=== PATIENT | female | born 1950 | race Caucasian/White ===

== ENCOUNTER 2017-02-03 16:30 | Emergency (ER) | payer MEDICARE ==
[2017-02-03 21:48] LABS: ALBUMIN 2.9 g/dL (3.4-5.0); ALKALINE PHOSPHATASE 58 U/L (46-116); ALT (SGPT) 20 U/L (10-68); BILIRUBIN - TOTAL 0.38 mg/dL (0.2-1.3); CALC OSMOLALITY 266 mosm/kg (275-300); CALCIUM 8.6 mg/dL (8.5-10.1); CARBON DIOXIDE 30.4 mmol/L (21.0-32.0); CHLORIDE - SERUM 98 mmol/L (98-107); CREATININE - SERUM 0.7 mg/dL (0.6-1.3); GLUCOSE 95 mg/dL (74-106); POTASSIUM - SERUM 3.5 mmol/L (3.5-5.1); PROTEIN - SERUM 7.4 g/dL (6.4-8.2); SODIUM 135 mmol/L (136-145); UREA NITROGEN 5 mg/dL (7-18); eGFR NON AFRICAN AMERICAN 88 mL/min (90-120)
[2017-02-03 22:30] LABS: BASOPHILS 0.2 % (0.0-2.0); HEMATOCRIT 34.7 % (36.0-48.0); HEMOGLOBIN 11.6 g/dL (12-16); IMMATURE GRANULOCYTES 0.5 % (0-5); LYMPHOCYTES 20.8 % (15-50); MCH 30.2 pg (26.0-34.0); MCHC 33.4 g/dL (31.0-37.0); MCV 90.4 fL (80.0-100.0); MEAN PLATELET VOLUME 10.2 fL (7.4-10.4); MONOCYTES 8.4 % (2-11); NEUTROPHILS 69.1 % (40-80); PLATELET COUNT 288 10x3/uL (130-400); RBC 3.84 10x6/uL (4.00-5.40); RDW 13.2 % (11.5-14.5); WBC 9.7 10x3/uL (4.8-10.8)
== END 2017-02-03 23:02 | disposition home or self-care (01) ==
LOC: D.ER 16:30
PROVIDERS: Emergency Medicine; Nurse Practitioner Family
DX: J06.9 Acute upper respiratory infection, unspecified (principal); J20.9 Acute bronchitis, unspecified; F32.9 Major depressive disorder, single episode, unspecified; J45.909 Unspecified asthma, uncomplicated

== ENCOUNTER → 2018-02-01 17:55 | Outpatient (CLI) | payer MEDICARE ==
[~2018-02-01 17:55] MED LIST: PROZAC10 MG PO; SINGULAIR10 MG PO
[2018-02-17 06:21] VITALS: BMI 24.6
== END | disposition home or self-care (01) ==
LOC: D.LABREF 17:55
DX: R31.9 Hematuria, unspecified (principal)

== ENCOUNTER → 2018-02-09 15:23 | Outpatient (CLI) | payer MEDICARE ==
[2018-02-17 06:21] VITALS: BMI 24.6
== END | disposition home or self-care (01) ==
LOC: D.US 02-07 13:30
DX: R31.21 Asymptomatic microscopic hematuria (principal)

== ENCOUNTER 2018-02-17 05:15 | Day surgery (SDC) | payer MEDICARE ==
[~2018-02-17] VITALS: Ht 165.1 cm; Wt 67.1 kg
--- NOTE | ~2018-02-17 | OP ---
PATIENT NAME: MARLINE MILLER MEDICAL RECORD: [id number] :46 LOCATION:D.OPS ADMISSION DATE: SURGEON: ISRAEL MORGAN MD DATE OF OPERATION: 02/17/2018 SURGEON: Israel Morgan MD ANESTHESIA: MAC by Israel Shields MD PREOPERATIVE DIAGNOSES: Microhematuria, interstitial cystitis. PROCEDURES: Cystoscopy and intravesical Rimso instillation. FINDINGS: Single ureteral orifices bilaterally. Inflammation of the bladder on the dome and anterior yeh. No bladder tumor is seen. BLOOD LOSS: None. CLINICAL HISTORY: This is a 68-year-old female, who has bladder symptoms of frequency, urgency, and bladder pain. She go so frequently that she was wondering if she has actually even emptying her bladder. On urinalysis, she was found to have microscopic hematuria. We obtained an ultrasound of her kidneys and it is normal, although there is questionable left-sided hydronephrosis. She does not have any left flank pain. Urine cytology showed no tumor cells. She comes today to have cystoscopy performed. If we see bladder inflammation then she will be treated with intravesical Rimso, which is an anti-inflammatory. SHE IS ALLERGIC TO BEE STINGS. She was given ampicillin and sulbactam 3 grams IV powder monkey to the OR. DESCRIPTION OF PROCEDURE: The patient was given IV sedation. She was placed in the dorsal lithotomy position, and prepped and draped. The cystoscope was introduced and cystoscopy was performed with the findings are as outlined above. The bladder was then emptied through the scope and the scope was removed. We inserted a 16-Korean red rubber catheter and through the catheter, we injected the 50 mL of Rimso-50 solution. The catheter was then removed, leaving the solution in the bladder. She will hold the solution in for about 15 minutes and then void it out. TRANSINT:[id number] Voice Confirmation ID: [id number] DOCUMENT ID: [id number] ISRAEL MORGAN MD at 1012 CC: [id number] DICTATION DATE: 02/17/18809 BABY COUNSELOR: 02/17/18 0829 [facility] 02/17/18 [place] [address]
[2018-02-17] MEDS ORDERED: SINGULAIR10 MG PO (06:19)
[2018-02-17 06:21] VITALS: BP 129/71; Ht 165.1 cm; Wt 67.1 kg
[2018-02-17 06:51] LABS: HEMOGLOBIN 13.2 g/dL (12-16); MCHC 33.8 g/dL (31.0-37.0); MCV 88.6 fL (80.0-100.0); MEAN PLATELET VOLUME 9.9 fL (7.4-10.4); RBC 4.4 10x6/uL (4.00-5.40); RDW 13.2 % (11.5-14.5); WBC 5.2 10x3/uL (4.8-10.8)
== END 2018-02-17 09:31 | disposition home or self-care (01) ==
LOC: D.OPS 05:15
PROVIDERS: Anesthesiology
DX: R31.29 Other microscopic hematuria (principal); N30.11 Interstitial cystitis (chronic) with hematuria; J44.9 Chronic obstructive pulmonary disease, unspecified; J45.909 Unspecified asthma, uncomplicated; K21.9 Gastro-esophageal reflux disease without esophagitis; Z01.812 Encounter for preprocedural laboratory examination

== ENCOUNTER → 2018-09-19 12:25 | Outpatient (CLI) | payer MEDICARE ==
[2018-02-17 06:21] VITALS: BMI 24.6
== END | disposition home or self-care (01) ==
LOC: D.RAD 12:25
DX: M25.551 Pain in right hip (principal)

== ENCOUNTER → 2018-12-15 12:42 | Outpatient (CLI) | payer MEDICARE ==
[2018-02-17 06:21] VITALS: BMI 24.6
--- NOTE | ~2018-12-15 | HEMODYNAMI ---
PATIENT:MARLINE MILLER MEDICAL RECORD: [id number] : 46 LOCATION:BROCK ADMISSION DATE: 12/15/18 Generatedon:12/15/201813:23 Patient name: MARLINE MILLER Patient #: [id number] SSN: D OB: 1950 Date of study: 12/15/2018 Page: Of Hemodynamic Procedure Report Patient Data Patient Demographics Procedure consent was obtained First Name: MARLINE Gender: Female Last Name: ANGELA : 1950 Patient #: [id number] Age: 68 year(s) Race: Unknown Additional ID: [id number] Contact details Address: [address] [place] [address] State: [place] City: [place] Zip code: [address] Past Medical History Allergies: No known allergies Admission Admission Data Admission Date: 12/15/2018 Admission Time: 12:42 Procedure Procedure Types Cath Procedure Peripheral Cath Diagnostic Procedure Miscellaneous Procedure Description Procedure Date Procedure Date: 12/15/2018 Procedure Start Time: 13:06 Procedure Staff Name Function Kael Bowling MD Performing Physician Earl Gilbert RT Monitor Ally Verdugo RN Nurse Procedure Data Cath Procedure Fluoroscopy Diagnostic fluoroscopy Total fluoroscopy Time: 0.9 time: 0.9 min min Diagnostic fluoroscopy Total fluoroscopy dose: 5 dose: 5 mGy mGy Hemodynamics Rest Pre Cath Intra NCS Post Cath Procedure Log Time Note 12:57:43 Earl Gilbert RT (R) (CV) sent for patient. Start room use. 12:57:55 Patient received from Other to IR Alert and oriented. Tansferred to table in Supine position. 12:57:56 Correct patient and procedure confirmed by team. 12:57:58 Signed procedure consent form obtained from patient. 12:58:00 Full Disclosure recording started 12:58:00 - 12:58:01 Pre-procedure instructions explained to patient. 12:58:01 Pre-op teaching completed and patient verbalized understanding. 13:04:29 Patient allergic to No known allergies 13:04:43 Is patient on blood thinner?Yes 13:04:51 Right groin area was prepped with chlora-prep and draped in sterile fashion 13:04:59 Physician arrived 13:04:59 --------ALL STOP TIME OUT------ 13:05:00 Final Timeout: patient, procedure, and site verified with staff and physician. All members of the team are in agreement. 13:05:03 Right groin site verified by team. 13:05:09 Sedation plan: Local Anesthetic Medication:Lidocaine 13:06:19 Procedure started. 13:06:27 Local anesthetic to right groin with Lidocaine 1% by Kael Bowling MD.INITIAL ACCESS ONLY 13:06:55 SAFE-T PLUS MYELOGRAM TRAY opened to sterile field. 13:21:49 Procedure ended.(Physican Out) 13:22:21 Fluoroscopy time 00.90 minutes. 13:22:26 Fluoroscopy dose: 5 mGy 13:22:26 Flurop Dose total: 5 13:22:50 bandaide applied to right hip and pt sent home site stable Device Usage Item Name Manufacture Quantity Catalog Hospital Part Current Minimal Lot# / Number Charge Number Stock Stock Serial# Code SAFE-T CareFusion 1 [id number] PLUS MYELOGRAM TRAY Signature Audit [place] Stage Time Signature Unsigned Intra-Procedure 12/15/2018 Earl 1:23:13 PM Ofelia RT (R) (CV) Signatures Monitor : Earl Signature : Ofelia RT Date : Time : [facility] [address] [place] [address]
== END | disposition home or self-care (01) ==
LOC: D.RAD 12:42
DX: M16.11 Unilateral primary osteoarthritis, right hip (principal)

== ENCOUNTER 2019-04-27 05:45 | Day surgery (SDC) | payer MEDICARE ==
[~2019-04-27] VITALS: Ht 167.6 cm; Wt 68.0 kg
[~2019-04-27 05:45] MED LIST changes: +ALEVE220 MG PO; +CLARITIN 10 MG10 MG PO; +CRESTOR5 MG PO; +EFFEXOR XR37.5 MG PO
[2019-04-27 06:07] LABS: HEMATOCRIT 40.8 % (36.0-48.0); MCH 30.3 pg (26.0-34.0); MCHC 34.3 g/dL (31.0-37.0); MCV 88.3 fL (80.0-100.0); MEAN PLATELET VOLUME 9.4 fL (7.4-10.4); RBC 4.62 10x6/uL (4.00-5.40); RDW 14.2 % (11.5-14.5); WBC 6.3 10x3/uL (4.8-10.8)
[2019-04-27 07:24] VITALS: BP 138/63; Ht 167.6 cm; Wt 68.0 kg
--- NOTE | 2019-04-27 08:26 | NUR ---
REC'D FROM SURGERY. ENCOURAGED PATIENT TO TURN FROM SIDE TO SIDE TO DISTRIBUTE MEDICATION TO THE BLADDER, VERBALIZED UNDERSTANDING. ICE WATER BROUGHT TO PATIENT.
--- NOTE | 2019-04-27 08:52 | NUR ---
UP TO BATHROOM. VOIDED WITHOUT DIFFICULTY. WAITING ON BREAKFAST TRAYS.
--- NOTE | 2019-04-27 08:54 | NUR ---
UP TO BATHROOM. VOIDED WITHOUT DFFICULTY. WAITING ON BREAKFAST TRAYS. NO C/O VOICED.
--- NOTE | 2019-04-27 08:59 | NUR ---
CALLED PATIENT'S TRANSPORTATION. INFORMED PATIENT WOULD BE READY BETWEEN 20-30 MINUTES. VERBALIZED UNDERSTANDING.
--- NOTE | 2019-04-27 09:15 | NUR ---
FL TRAY BROUGHT TO PATIENT.
--- NOTE | 2019-04-27 09:30 | NUR ---
TOLERATED FL TRAY. NO CHANGES NOTED.
--- NOTE | 2019-04-27 09:35 | NUR ---
TOLERATED FL TRAY. IV DC'D WITH CATHETER INTACT. WRITTEN AND VERBAL DC INST. GIVEN TO PT. VERBALIZED UNDERSTANDING. WAITING ON TRANSPORTATION.
--- NOTE | 2019-04-27 10:15 | NUR ---
DC'D HOME WITH A FRIEND VIA PRIVATE VEHICLE. TAKEN TO VEHICLE VIA WC. STABLE AT TIME OF DC.
--- NOTE | 2019-04-28 09:07 | OP ---
PATIENT NAME: MARLINE MILLER MEDICAL RECORD: [id number] :46 LOCATION:D.OPS ADMISSION DATE: SURGEON: ISRAEL MORGAN MD DATE OF OPERATION: 04/27/2019 SURGEON: Israel Morgan MD ANESTHESIA: TIVA by Torres Figueroa MD. DIAGNOSES: Urethral stricture, interstitial cystitis. PROCEDURES: Urethral dilation, cystoscopy, hydrodistention, and intravesical Rimso instillation. FINDINGS: Single ureteral orifices bilaterally, diffuse bladder inflammation with glomerulations, cystitis cystica. No bladder tumors were seen. BLOOD LOSS: None. CLINICAL HISTORY: This is a 69-year-old female with a previous history of interstitial cystitis, which responded to intravesical Rimso. Her symptoms have flared up again and now she has suprapubic pain with urinary urgency and nocturia every 2 hours and daytime frequency every 1 hour. There is also vaginal pain. She also complains of a slow urinary flow. Urine cultures have shown no growth. She comes for cystoscopy, hydrodistention and intravesical Rimso installation. If she has a urethral stricture, we will dilate the urethra. She is not allergic to any medications. She was given Ancef quality assurance monitor body to the OR. PROCEDURE: The patient was given IV sedation. She was placed into lithotomy position and prepped and draped. A 21-[place]orese cystoscope could not enter due to urethral stricture. We used sounds to dilate the urethra to 24 [place]orese. The scope could then be placed in. Findings are as outlined above. The bladder was filled with normal saline to a volume of at least 600 mL. This was held for about 1 minute and then the bladder was deflated. The scope was then removed. A red rubber catheter was inserted into the bladder and through the lumen of the catheter, 50 mL of Rimso solution was instilled into the bladder. The catheter was then removed, leaving the solution in the bladder. The patient will hold the solution in for 15 minutes or longer and then void it out. I will see the patient in followup in 2 weeks' time. TRANSINT:[id number] Voice Confirmation ID: [id number] DOCUMENT ID: [id number] ISRAEL MORGAN MD at 0907 CC: [id number] DICTATION DATE: 04/27/19826 FORENSIC EXAMINER: 04/27/192118 [facility] 04/27/19 [facility] [address] [place] [id number]
== END 2019-04-27 10:15 | disposition home or self-care (01) ==
LOC: D.OPS 05:45 → D.PAN 08:15 → D.OPS 09:45 → D.PAN 10:15 → D.OPS 10:15
PROVIDERS: Anesthesiology; ATTEND Urology
DX: N35.92 Unspecified urethral stricture, female (principal); N30.10 Interstitial cystitis (chronic) without hematuria; N30.80 Other cystitis without hematuria; Z01.812 Encounter for preprocedural laboratory examination

== ENCOUNTER → 2019-05-11 09:21 | Outpatient (CLI) | payer MEDICARE ==
[2019-04-27 07:24] VITALS: BMI 24.2
--- NOTE | ~2019-05-11 | HEMODYNAMI ---
PATIENT:MARLINE MILLER MEDICAL RECORD: [id number] : 46 LOCATION:BROCK ADMISSION DATE: 05/11/19 Generatedon:05/11/201910:42 Patient name: MARLINE MILLER Patient #: [id number] SSN: D OB: 1950 Date of study: 05/11/2019 Page: Of Hemodynamic Procedure Report Patient Data Patient Demographics Procedure consent was obtained First Name: MARLINE Gender: Female Last Name: ANGELA : 1950 Patient #: [id number] Age: 69 year(s) Race: Unknown Additional ID: [id number] Contact details Address: [address] [place] [address] State: [place] City: [place] Zip code: [address] Past Medical History Allergies: No known allergies Admission Admission Data Admission Date: 05/11/2019 Admission Time: 9:21 Procedure Procedure Types Cath Procedure Peripheral Cath Diagnostic Procedure Miscellaneous Aspiration/Injection (Joint) Procedure Description Procedure Date Procedure Date: 05/11/2019 Procedure Start Time: 10:29 Procedure End Time: 10:39 Procedure Staff Name Function Prabhjot Jovel MD Performing Physician RAGINI MEREDITH RT Monitor Chrissy Patino RN Nurse Asmita Verdugo RN Nurse Procedure Data Cath Procedure Fluoroscopy Diagnostic fluoroscopy Total fluoroscopy Time: 0.1 time: 0.1 min min Diagnostic fluoroscopy Total fluoroscopy dose: 2 dose: 2 mGy mGy Hemodynamics Rest Pre Cath Intra NCS Post Cath Procedure Log Time Note 10:11:46 RAGINI MEREDITH RT (R) sent for patient. Start room use. 10:11:47 Time tracking: Regular hours (M-F 7:00 - 5:00) 10:11:56 Patient received from Outpatients to IR Alert and oriented. Tansferred to table in Supine position. 10:11:59 Correct patient and procedure confirmed by team. 10:12:03 Signed procedure consent form obtained from patient. 10:12:04 - 10:12:11 Pre-procedure instructions explained to patient. 10:12:15 Pre-op teaching completed and patient verbalized understanding. 10:12:22 Patient allergic to No known allergies 10:12:27 Is patient on blood thinner?No 10:12:57 Right Hip was prepped with betadine and draped in sterile fashion. 10:13:06 - 10:21:09 SAFE-T PLUS MYELOGRAM TRAY opened to sterile field. 10:22:54 Physician arrived 10:22:55 --------ALL STOP TIME OUT------ 10:23:37 Full Disclosure recording started 10:29:43 Local anesthetic to Right Hip with Lidocaine 1% by Prabhjot Jovel MD.INITIA L ACCESS ONLY 10:34:16 Procedure ended.(Physican Out) 10:34:25 Fluoroscopy time 00.10 minutes. 10:34:31 Fluoroscopy dose: 2 mGy 10:34:31 Flurop Dose total: 2 10:39:07 Procedure ended. 10:39:08 Full Disclosure recording stopped 10:39:31 Post Right Hip:stable band aide applied and patient sent home. 10:39:43 End room use (Document Last) 10:41:37 Procedure started. Device Usage Item Name Manufacture Quantity Catalog Hospital Part Current Minimal Lot# / Number Charge Number Stock Stock Serial# Code SAFE-T CareFusion 1 [id number] PLUS MYELOGRAM TRAY Signature Audit [place] Stage Time Signature Unsigned Intra-Procedure 05/11/2019 RAGINI MEREDITH RT 10:42:13 AM (R) Signatures Monitor : RAGINI MEREDITH RT Signature : Date : Time : [place] [address] [place] [address]
== END | disposition home or self-care (01) ==
LOC: D.RAD 08:00
PROVIDERS: ATTEND Orthopaedic Surgery
DX: M16.11 Unilateral primary osteoarthritis, right hip (principal)

== ENCOUNTER → 2019-05-15 20:01 | Outpatient (CLI) | payer MEDICARE ==
[2019-04-27 07:24] VITALS: BMI 24.2
== END | disposition home or self-care (01) ==
LOC: D.LABREF 20:01
PROVIDERS: ATTEND Urology
DX: D72.829 Elevated white blood cell count, unspecified (principal); R31.9 Hematuria, unspecified

== ENCOUNTER 2019-05-22 08:00 | Outpatient (CLI) | payer MEDICARE ==
[2019-04-27 07:24] VITALS: BMI 24.2
== END 2019-05-22 23:59 | disposition home or self-care (01) ==
LOC: D.MAMMO 08:00
PROVIDERS: ATTEND Family Medicine
DX: Z12.31 Encounter for screening mammogram for malignant neoplasm of breast (principal)

== ENCOUNTER → 2020-05-06 20:48 | Outpatient (CLI) | payer MEDICARE ==
[2019-04-27 07:24] VITALS: BMI 24.2
== END | disposition home or self-care (01) ==
LOC: D.LABREF 20:48
PROVIDERS: ATTEND Urology
DX: R82.90 Unspecified abnormal findings in urine (principal)

== ENCOUNTER → 2020-05-21 10:19 | Outpatient (CLI) | payer MEDICARE ==
[2019-04-27 07:24] VITALS: BMI 24.2
--- NOTE | ~2020-05-21 | HEMODYNAMI ---
PATIENT:MARLINE MILLER MEDICAL RECORD: [id number] : 46 LOCATION:[facility] ADMISSION DATE: 05/21/20 Generatedon:05/21/202011:04 Patient name: MARLINE MILLER Patient #: [id number] SSN: D OB: 1950 Date of study: 05/21/2020 Page: Of Hemodynamic Procedure Report Patient Data Patient Demographics Procedure consent was obtained First Name: MARLINE Gender: Female Last Name: ANGELA : 1950 Patient #: [id number] Age: 70 year(s) Race: Unknown Additional ID: [id number] Contact details Address: [address] [place] [address] State: [place] City: [place] Zip code: [address] Past Medical History Allergies: No known allergies Admission Admission Data Admission Date: 05/21/2020 Admission Time: 10:19 Procedure Procedure Types Cath Procedure Peripheral Cath Diagnostic Procedure Miscellaneous Epidural Steroid Injection Procedure Description Procedure Date Procedure Date: 05/21/2020 Procedure Start Time: 10:54 Procedure Staff Name Function Prabhjot Jovel MD Performing Physician Earl Gilbert RT Monitor Fabienne Saeed RT Scrub Procedure Data Cath Procedure Fluoroscopy Diagnostic fluoroscopy Total fluoroscopy Time: 0.3 time: 0.3 min min Diagnostic fluoroscopy Total fluoroscopy dose: 3 dose: 3 mGy mGy Hemodynamics Rest Pre Cath Intra NCS Post Cath Procedure Log Time Note 10:46:13 Earl Gilbert RT (R) (CV) sent for patient. Start room use. 10:46:18 Time tracking: Regular hours (M-F 7:00 - 5:00) 10:46:32 Patient received from Other to IR Alert and oriented. Tansferred to table in Prone position. 10:46:34 Signed procedure consent form obtained from patient. 10:46:35 Warm blankets applied, and tiffany hugger turned on for patient comfort. 10:46:37 Correct patient and procedure confirmed by team. 10:46:39 Full Disclosure recording started 10:46:39 - 10:46:41 Pre-procedure instructions explained to patient. 10:46:42 Pre-op teaching completed and patient verbalized understanding. 10:46:50 Is patient on blood thinner?No 10:47:13 Lumbar area was prepped with betadine and draped in sterile fashion 10:53:31 Physician arrived 10:53:31 --------ALL STOP TIME OUT------ 10:53:32 Final Timeout: patient, procedure, and site verified with staff and physician. All members of the team are in agreement. 10:53:36 Lumbar site verified by team. 10:53:45 Sedation plan: Local Anesthetic Medication:Lidocaine 10:53:59 Procedure started. 10:54:05 Local anesthetic to Lumbar area with Lidocaine 1% by Prabhjot Jovel MD.INITIAL ACCESS ONLY 10:55:30 KIT EPIDURAL CATHETERIZATION opened to sterile field. 11:02:31 Procedure ended.(Physican Out) 11:02:55 Fluoroscopy time 00.30 minutes. 11:02:58 Flurop Dose total: 3 11:02:58 Fluoroscopy dose: 3 mGy 11:03:22 BANDAIDE APPLIED SITE STABALE PT SENT HOME Device Usage Item Name Manufacture Quantity Catalog Hospital Part Current [facility] l Lot# / Number Charge Number Stock Stock Serial# Code KIT EPIDURAL Teleflex 1 [id number] CATHETERIZATION Signature Audit [place] Stage Time Signature Unsigned Intra-Procedure 05/21/2020 Earl 11:04:36 AM Ofelia RT (R) (CV) [facility] [address] [place] [address]
== END | disposition home or self-care (01) ==
LOC: D.RAD 10:00
PROVIDERS: ATTEND Orthopaedic Surgery
DX: M54.16 Radiculopathy, lumbar region (principal)

== ENCOUNTER → 2020-05-23 10:46 | Outpatient (CLI) | payer MEDICARE ==
[2019-04-27 07:24] VITALS: BMI 24.2
--- NOTE | ~2020-05-23 | HEMODYNAMI ---
PATIENT:MARLINE MILLER MEDICAL RECORD: [id number] : 46 LOCATION:BROCK ADMISSION DATE: 05/23/20 Generatedon:05/23/202012:25 Patient name: MARLINE MILLER Patient #: [id number] SSN: D OB: 1950 Date of study: 05/23/2020 Page: Of Hemodynamic Procedure Report Patient Data Patient Demographics Procedure consent was obtained First Name: MARLINE Gender: Female Last Name: ANGELA : 1950 Patient #: [id number] Age: 70 year(s) Race: Unknown Additional ID: [id number] Contact details Address: [address] [place] [address] State: [place] City: [place] Zip code: [address] Past Medical History Allergies: No known allergies Admission Admission Data Admission Date: 05/23/2020 Admission Time: 10:46 Procedure Procedure Types Cath Procedure Peripheral Cath Diagnostic Procedure Miscellaneous Joint Aspiration w/US Procedure Description Procedure Date Procedure Date: 05/23/2020 Procedure Start Time: 12:17 Procedure Staff Name Function Prabhjot Jovel MD Performing Physician Earl Gilbert RT Monitor Procedure Data Cath Procedure Fluoroscopy Diagnostic fluoroscopy Total fluoroscopy Time: 0.2 time: 0.2 min min Diagnostic fluoroscopy Total fluoroscopy dose: 2 dose: 2 mGy mGy Hemodynamics Rest Pre Cath Intra NCS Post Cath Procedure Log Time Note 12:07:27 Earl Gilbert RT (R) (CV) sent for patient. Start room use. 12:07:37 Time tracking: Regular hours (M-F 7:00 - 5:00) 12:07:44 Patient received from Outpatients to IR Alert and oriented. Tansferred to table in Supine position. 12:07:47 Signed procedure consent form obtained from patient. 12:07:49 ECG and BP/O2 sat monitors applied to patient. 12:07:50 Full Disclosure recording started 12:07:50 - 12:07:53 Pre-procedure instructions explained to patient. 12:07:53 Pre-op teaching completed and patient verbalized understanding. 12:07:59 Is patient on blood thinner?No 12:08:15 Right Hip was prepped with betadine and draped in sterile fashion. 12:16:33 Physician arrived 12:16:34 --------ALL STOP TIME OUT------ 12:16:34 Final Timeout: patient, procedure, and site verified with staff and physician. All members of the team are in agreement. 12:16:47 Right groin site verified by team. 12:16:53 Sedation plan: Local Anesthetic Medication:Lidocaine 12:17:08 Procedure started. 12:17:15 Local anesthetic to Right Hip with Lidocaine 1% by Prabhjot Jovel MD.INITIA L ACCESS ONLY 12:17:25 SAFE-T PLUS MYELOGRAM TRAY opened to sterile field. 12:24:44 Procedure ended.(Physican Out) 12:25:02 Fluoroscopy time 00.20 minutes. 12:25:07 Fluoroscopy dose: 2 mGy 12:25:07 Flurop Dose total: 2 12:25:37 SITE STABLE BANDAIDE APPLIED PT SENT HOME Device Usage Item Name Manufacture Quantity Catalog Hospital Part Current Minimal Lot# / Number Charge Number Stock Stock Serial# Code SAFE-T CareFusion 1 [id number] PLUS MYELOGRAM TRAY Signature Audit [place] Stage Time Signature Unsigned Intra-Procedure 05/23/2020 Earl 12:25:55 [facility] [address] [place] [address]
== END | disposition home or self-care (01) ==
LOC: D.RAD 10:46
PROVIDERS: ATTEND Orthopaedic Surgery
DX: M13.851 Other specified arthritis, right hip (principal)

== ENCOUNTER 2020-06-05 08:00 | Outpatient (CLI) | payer MEDICARE ==
[2019-04-27 07:24] VITALS: BMI 24.2
== END 2020-06-05 23:59 | disposition home or self-care (01) ==
LOC: D.MAMMO 08:00
PROVIDERS: ATTEND Family Medicine
DX: Z12.31 Encounter for screening mammogram for malignant neoplasm of breast (principal)

== ENCOUNTER 2020-07-26 06:35 | Day surgery (SDC) | payer MEDICARE ==
[2020-07-24 15:55] LABS: BASOPHILS 0.4 % (0-2); EOSINOPHILS 1.2 % (0-7); HEMATOCRIT 41.3 % (36.0-48.0); HEMOGLOBIN 13.5 g/dL (12-16); IMMATURE GRANULOCYTES 0.2 % (0-5); LYMPHOCYTES 21.4 % (15-50); MCH 29.3 pg (26.0-34.0); MCHC 32.7 g/dL (31.0-37.0); MCV 89.6 fL (80.0-100.0); MEAN PLATELET VOLUME 9.7 fL (7.4-10.4); MONOCYTES 10.1 % (2-11); NEUTROPHILS 66.7 % (40-80); RBC 4.61 10x6/uL (4.00-5.40); RDW 14.1 % (11.5-14.5); WBC 8.4 10x3/uL (4.8-10.8)
[2020-07-24 15:56] LABS: PLATELET COUNT 256 10x3/uL (130-400)
[~2020-07-26] VITALS: Ht 165.1 cm; Wt 68.5 kg
--- NOTE | ~2020-07-26 | OP ---
PATIENT NAME: MARLINE MILLER MEDICAL RECORD: [id number] :46 LOCATION:[facility] ADMISSION DATE: SURGEON: MIKAYLA RUSOS MD DATE OF OPERATION: 07/26/2020 PREOPERATIVE DIAGNOSIS: Postmenopausal bleeding. POSTOPERATIVE DIAGNOSIS: Postmenopausal bleeding. PROCEDURES: Hysteroscopy, dilation and curettage. ANESTHESIA: General endotracheal. INTRAVENOUS FLUIDS: Per anesthesia record. HYSTEROSCOPIC FLUID LOSS: Approximately 10 cc of 0.9 normal saline. FINDINGS: 1. Grossly normal-appearing external genitalia and cervix. 2. Grossly normal appearing atrophic appearing endometrial canal. COMPLICATIONS: None apparent. PROCEDURE IN DETAIL: The patient was taken to the operating room where general anesthesia was achieved without difficulty. The patient was placed in the dorsal lithotomy position in the [facility]. At this point, the bladder was drained of approximately 300 cc of clear yellow urine and the right angle was placed anteriorly and small view replaced posteriorly and explored. At this point, the cervix was grasped on its anterior lip with single tooth tenaculum. The patient sounded to approximately 6-7 cm. The patient was dilated to approximately 6 mm and hysteroscope was introduced into the endometrial cavity. Hysteroscopic surveillance of the cavity was performed followed by curetting in all 4 quadrants. The patient tolerated the procedure well. The sponge stick was removed from the vagina. He was instructed to follow up in 2 weeks. Following hysteroscopic evaluation, curettage was performed with a Nabilian curette. The patient tolerated the procedure well, transferred to postanesthesia recovery stable without incident. TRANSINT:[id number] Voice Confirmation ID: [id number] DOCUMENT ID: [id number] MIKAYLA RUSSO MD CC: [id number] DICTATION DATE: 07/26/20 133 TETRYL BOILING TUB OPERATOR: 07/26/20 2320 [facility] 07/26/20 [facility] [address] [place] [address]
[~2020-07-26 06:35] MED LIST changes: +ADVAIR 250-501 EAC1 INH; +MOBIC7.5 MG PO
[2020-07-26 06:51] VITALS: BP 147/74; Ht 165.1 cm; Wt 68.5 kg
--- NOTE | 2020-07-26 11:49 | NUR ---
PT IS RESTING QUIETLY IN BED. DENIES NEEDS AT THIS TIME. IS TOLERATING WATER. WILL CONTINUE TO MONITOR.
--- NOTE | 2020-07-26 12:10 | NUR ---
DC INSTRUCTIONS GIVEN TO PT. STATES UNDERSTANDING.
--- NOTE | 2020-07-26 12:22 | NUR ---
PT VOIDED. DC'D IV CATH FULLY INTACT. WILL DC SHORTLY.
--- NOTE | 2020-07-26 12:59 | NUR ---
PT LEFT UNIT VIA WC AT 1255
== END 2020-07-26 12:55 | disposition home or self-care (01) ==
LOC: D.OPS 06:35 → D.PAN 07:30 → D.OPS 08:30
PROVIDERS: ATTEND Obstetrics & Gynecology
DX: N95.0 Postmenopausal bleeding (principal)

== ENCOUNTER → 2020-08-01 18:59 | Outpatient (CLI) | payer MEDICARE ==
[2020-07-26 06:51] VITALS: BMI 25.1
== END | disposition home or self-care (01) ==
LOC: D.LABREF 18:59
PROVIDERS: ATTEND Orthopaedic Surgery
DX: M16.11 Unilateral primary osteoarthritis, right hip (principal)

== ENCOUNTER → 2021-05-02 14:57 | Outpatient (CLI) | payer MEDICARE ==
[2020-07-26 06:51] VITALS: BMI 25.1
== END | disposition home or self-care (01) ==
LOC: D.LABREF 14:57
PROVIDERS: ATTEND Orthopaedic Surgery
DX: M16.11 Unilateral primary osteoarthritis, right hip (principal)

== ENCOUNTER → 2021-05-29 10:28 | Day surgery (SDC) | payer MEDICARE ==
[2020-07-26 06:51] VITALS: BMI 25.1
--- NOTE | 2021-05-29 11:32 | NUR ---
TIMEOUT PERFORMED AT 1116 USING NAME AND . NO ALLERGIES, NO BLOOD THINNERS
== END | disposition home or self-care (01) ==
LOC: D.RAD 10:28
PROVIDERS: ATTEND Clinical Nurse Specialist Family Health
DX: M16.11 Unilateral primary osteoarthritis, right hip (principal)